=== PATIENT | male | born 1955 | race Caucasian/White ===

== ENCOUNTER 2017-02-09 11:38 | Emergency (ER) | payer OTHER ==
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
[2017-02-09] MEDS ORDERED: ONDANSETRON 4 MG/2 ML VIAL ONE (11:42)
[2017-02-09] MEDS ORDERED: HYDROmorphONE/DILAUDID 1 MG/ML SYR ONE (11:42)
[2017-02-09] MEDS ORDERED: HYDROmorphONE/DILAUDID 1 MG/ML SYR IVP ONE ×2 (11:47→13:20)
[2017-02-09] MEDS ORDERED: ONDANSETRON 4 MG/2 ML VIAL IVP ONE (11:49)
[2017-02-09] MEDS ORDERED: NS 1,000 ML IV ONE (11:49)
[2017-02-09 12:02] LABS: % IMMATURE GRANULYOCYTES 0.3 % (0.0-1.1); ABSOLUTE IMMATURE GRANULOCYTES 0.02 10^3/uL (0.00-0.10); ADD DIFF? NO; ADD MORPH? NO; ADD SCAN? NO; ATYPICAL LYMPHOCYTE FLAG 0 (0-99); FRAGMENT RBC FLAG 0 (0-99); HEMATOCRIT 47.7 % (40.0-51.0); HEMOGLOBIN 16.2 g/dL (13.7-17.5); LEFT SHIFT FLG 0 (0-99); LIPEMIA HEMOLYSIS FLAG 90 (0-99); MEAN CELL VOLUME 88.3 fL (81.5-99.8); MEAN PLATELET VOLUME 10.7 fL (8.7-11.7); PLATELET CLUMPS FLAG 0 (0-99); PLATELET COUNT 247 10^3/uL (150-400); RED CELL DISTRIBUTION WIDTH 13.5 % (11.5-15.2)
[2017-02-09 12:10] VITALS: RESP 15
[2017-02-09] MEDS ORDERED: IOPAMIDOL (ISOVUE-300) 100 ML BTL ONE (12:15)
[2017-02-09 12:20] LABS: ANION GAP 13 mEq/L (8-16); CARBON DIOXIDE 19 mEq/l (22-31); CHLORIDE 104 mEq/L (97-110); CREATININE 1.1 mg/dL (0.7-1.3); GLOMERULAR FILTRATION RATE > 60; GLUCOSE 114 mg/dL (70-100); POTASSIUM 4.4 mEq/L (3.5-5.2); SODIUM 136 mEq/L (134-144)
[2017-02-09] MEDS ORDERED: LET GEL TOPICAL 1 EA SYR TP ONE ×2 (13:39→13:46)
[2017-02-09 15:02] VITALS: BP 136/67; PULSE 76; TEMP 98.1; O2SAT 95
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
== END 2017-02-09 15:02 | disposition home or self-care (01) ==
LOC: EDUNIT#
DX: S42.114A Nondisplaced fracture of body of scapula, right shoulder, initial encounter for closed fracture (principal); S22.41XA Multiple fractures of ribs, right side, initial encounter for closed fracture; S42.141A Displaced fracture of glenoid cavity of scapula, right shoulder, initial encounter for closed fracture; S42.151A Displaced fracture of neck of scapula, right shoulder, initial encounter for closed fracture; S42.201A Unspecified fracture of upper end of right humerus, initial encounter for closed fracture; V18.4XXA Pedal cycle driver injured in noncollision transport accident in traffic accident, initial encounter; Y92.410 Unspecified street and highway as the place of occurrence of the external cause; Y99.8 Other external cause status; Y93.89 Activity, other specified
CPT/HCPCS: 96374; J1170; J2405; Q9967